=== PATIENT | female | born 1995 | race Caucasian/White ===

== ENCOUNTER 2024-07-15 07:54 | Inpatient (IN) | payer MEDICAID ==
[~2024-07-15] VITALS: Ht 154.9 cm; Wt 82.4 kg
[2024-07-15 10:43] VITALS: BP 124/81; PULSE 93; RESP 18; TEMP 97.7; O2SAT 100
[2024-07-15] MEDS ORDERED: magnesium hydroxide 30ml (MOM) UD suspension PO PRN (16:00)
[2024-07-15] MEDS ORDERED: mag hydrox/Alum hydrox/simeth 30ml oral suspension PO PRN (16:00)
[2024-07-15] MEDS ORDERED: acetaminophen 325mg tablet PO PRN ×2 (16:00)
[2024-07-15] MEDS ORDERED: loperamide 2mg capsule PO PRN (16:00)
[2024-07-15] MEDS ORDERED: diphenhydrAMINE 25mg capsule PO PRN (16:00)
[2024-07-15] MEDS ORDERED: NO HOME MEDS (17:44)
[2024-07-15 17:47] VITALS: RESP 18; O2SAT 100
[2024-07-15 19:00] VITALS: RESP 16; O2SAT 98
[2024-07-15 20:00] VITALS: BP 97/63; PULSE 72; RESP 16; TEMP 97; O2SAT 98
[2024-07-16 07:00] VITALS: BP 113/52; PULSE 71; RESP 16; TEMP 97.6; O2SAT 100
--- NOTE | 2024-07-16 15:19 | HISTORY AND PHYSICAL ---
MH History & Physical - Blank History and Physical CHIEF COMPLIANT GRAVELY DISABILITY HISTORY OF PRESENT ILLNESS Paz Núñez is a 29-year-old female with no clearly documented pertinent past medical history who presents to the ED via ambulance on a 5150 hold for gravely disability. Patient presents to [facility] today seeking admission for "brain fog" accompanied by a strange smell described as "sort of like soap". [facility] reports that patient was thought blocking in was unable to articulate a plan for care, so this staff member place the patient on a 5150 hold for gravely disability. In the ED patient states that she has been homeless for the past six years but goes on to state that she uses an EBT card to feed herself and has a plan to begin staying outside of a local [employer] to have easier access to food. He describes intermittently experiencing a change in the air that she can hear, C, and feel, and that causes her to become unsafe with a fear that is something we will try to attack her. Patient denies auditory or visual hallucinations, illicit drug use, suicidal ideation, homicidal ideation, or headache. She endorses using alcohol sometimes in expresses interest in speaking with pediatric social worker regarding housing options. Patient is prescribed no medications at baseline. CHART REVIEW 5150 states: "You reported something strange is happening, something is attacking me" Patient cannot say when she last ate or articulate a plan of self- care. Pt reports she will smell soap or something burning; then she reports she will sometimes hear the wind or an engine noise and then have the feeling that someone or something is going to either harm or attack her. Patient reports this feeling can present as a tactile hallucination ASSESSMENT The patient was interviewed in observation room. The patient was actively sitting edge of bed. The patient endorses "I feel fine." The patient endorses "I am in here because something sort of happening to me a few months ago. something thing happened were everything changes were I will start to smell a plastic soap a rubber smell." "Something happened to me I do not know why it happens; think it is like normal and then can happen were things changes like the air changes become still in different." "I have to leave the area and I smell like a soap plastic smell." "I started to get intimidated and then when I start to get intimidated its like a person is there not like one person there is a bunch of people there." "It seems like someone is trying to attack me like someone is trying to get beat me up like with a weapon." "They could have a knife or something "There is also something there that is like invisible something is trying to rip my body apart and then some growling there." Denies SI. Denies HI. The patient endorses she has been moving around for the past few years is back in [facility] right now. Then started happening to me in [place] so I had to come up here to [place]. Patient endorses she could not find a job and then COVID-19 happened and that is how she became homeless. The patient is stable no acute distress noted. The patient is delusional, paranoid, and engaged during session. The patient seems to be thought blocking and minimizing her symptoms. Will continue daily assessment and adjusting treatment as needed. Closely monitor behavior and response to medication during hospitalization. Discussed treatment plan with patient. ASE/risks and benefits of chosen treatment. She verbalized understanding and consented to treatment. REVIEW OF LABS URINE TOX SCREEN NEGATIVE URINALYSIS NEGATIVE SODIUM 139 POTASSIUM 4.0 CHLORIDE 107 ANION GAP 6 BUN 9 CREATININE 0.68 CALCIUM 10.0 ALBUMIN 3.8 AST 15 ALT 17 WBC 6.16 RBC 4.38 HEMOGLOBIN 13.7 HEMATOCRIT 39.2 PLATELET 274 MENTAL STATUS EXAM APPEARANCE: UNKEMPT.AVERGAE HEIGHT AND WEIGHT FEMALE. WEARING GREEN SCRUBS.REDDISH BROWN SHOULDER LENGTH HAIR. SPEECH: CIRCUMSTANTIAL, TANGENTIAL EYE CONTACT: AVOIDANT ATTENTION: DISTRACTED AFFECT: CONSTRICTED MOOD: "I FEEL FINE" ORIENTATION IMPAIRMENT: NONE MEMORY IMPAIRMENT: NONE HALLUCINATIONS: NONE SUICIDALITY: NONE DELUSIONS: PARANOID BEHAVIOR: WITHDRAWN JUDGMENT: POOR INSIGHT: POOR TREATMENT The patient endorses "I feel like it is better not to take medications; that is just my preference." The patient was educated on medication compliance. We will give the patient a day or two to see if she agrees to taking medication. ABILIFY 5MG PO QHS Monitoring by Staff, Milieu, Group, and Individual counseling as needed -- According to the [place] Suicide Assessment the above named patient is on Q15 MINUTE CHECKS. [id number]- Patient is unable to formulate a plan to safely meet their basic needs of food, clothing, and skilled nursing due to the severity of their mental illness. We are still titrating medications to an effective dose while maintaining a therapeutic environment to prevent decompensation and readmission. REVIEW OF Clinical notes [X ] RN notes [X] PCT documentation [X] SW notes Labs [ X] Medications [X] Care trends/care activity [X] Vitals [X] DISCUSSION WITH director of email marketing [X] Staff SW [X] Treatment Team [X] DISCHARGE UNSURE AT THIS TIME. DISCHARGE HOME ONCE STABLE. Past Psychiatric History Past Psychiatric History NO PRIOR PSYCHIATRIC MENTAL HEALTH HOSPITALIZATIONS Past Medical History Past Medical History SEE MEDICAL H AND P Past Surgical History Past Surgical History DENIES Substance Abuse History Substance Abuse History ALCOHOL-2-3 TIMES PER WEEK MARIJUANA-DAILY TOBACCO-DENIES ILLICIT DRUGS-DENIES Personal History Current Living Situation HOMELESS Marital & Relationship History NEVER . NO CHILDREN.SINGLE Sexual History DEFER Occupational History UNEMPLOYED EBT Social Activity BORN AND RAISED IN [employer] SOME COLLEGE NO SIBLINGS FOSTER CARE IN CONTACT WITH MOM [employer] NONE Legal History DENIES ANY LEGAL HISTORY History DENIES ANY HISTORY Developmental History Childhood DENIES ANY FORM OF ABUSE Assessment/Plan Problems/Diagnosis: (1) Unspecified psychosis (2) Grave disability (3) Tactile hallucination (4) Paranoid CODING VISIT-PSYCHIATRY Date of Service: July 16, 2024 Billing Provider: MARJORIE YODER APRN Psych Common Visit Codes: [id number] INP/OBS CARE (High) MARJORIE YODER APRN July 16, 2024 15:19
[2024-07-16 16:11] LABS: CHOL/HDL RATIO 2.4 (0.00-4.99); CHOLESTEROL 206 MG/DL (0-200); HDL CHOLESTEROL 85 MG/DL (35-60); LDL CHOLESTEROL 107 MG/DL (50-100); TRIGLYCERIDES 73 MG/DL (20-135)
--- NOTE | 2024-07-16 16:15 | HISTORY AND PHYSICAL ---
History & Physical Providers to CC ~ History of Present Illness Reason for Admit\Complaint: Gravely disabled on a 5150 History of Present Illness This is the hospitalist history and physical exam on patients hospitalized at [facility]. Patient is on a 5150 for being gravely disabled currently has no acute medical complaints or concerns and there were none voiced by nursing staff. Allergies: Coded Allergies: No Known Drug Allergies (Verified Allergy, Unknown, 07/15/24) Home Medications Home Medications Active Reported No Home Medications (Home Med List) Each PRN Past Medical History Past Medical History None Past Surgical History Surgical History Comment None Family History Family History: Patient reports no known family medical history. Past Social History Social History Comment Does not smoke cigarettes, occasionally drinks alcohol, smokes marijuana however denies any illicit drug use. ROS ROS Except for positives in the HPI the rest of the 14 point review systems is negative Exam Vitals: Vital Signs Date Time Temp Pulse Resp B/P (MAP) Pulse Ox O2 Delivery O2 Flow Rate FiO2 07/16/24 07:00 97.6 71 16 113/52 (72) 100 Room Air General: Gen. No acute distress alert Lungs clear to ascultation bilaterally, no wheezes rales or rhonchi appreciated Heart normal sinus rhythm no murmurs rubs or clicks noted Abdomen soft nontender bowel sounds are normoactive Lower extremities no clubbing cyanosis, nor edema appreciated bilaterally Problems: (1) Grave disability Additional Plan # gravely disabled on a 5150 hold followed by Psychiatry Acute medical complaints or concerns were voiced by the patient nor nursing s taff. The Hospitalist service will continue to follow the patient Date of Service: July 16, 2024 Billing Provider: NANETTE SERNA DO Common Visit Codes: [id number] INP/OBS CARE (LOW) NANETTE SERNA DO July 16, 2024 16:15
[2024-07-16 19:00] VITALS: RESP 18; O2SAT 100
[2024-07-16 20:00] VITALS: BP 111/55; PULSE 73; RESP 18; TEMP 97.6; O2SAT 100
[2024-07-17 07:00] VITALS: RESP 16; O2SAT 96
[2024-07-17] MEDS: aripiprazole 2MG tablet PO SCH (07:55)
[2024-07-17 08:00] VITALS: BP 102/60; PULSE 72; RESP 16; TEMP 97.9; O2SAT 96
--- NOTE | 2024-07-17 11:46 | PROGRESS NOTE ---
Progress Note Dictate Providers to CC ~ Central Line/PICC still needed: N\\A Antibiotic Ordered?: No MRSA Education MRSA Education Provided to pt: No Objective Vitals Vital Signs Date Time Temp Pulse Resp B/P (MAP) Pulse Ox O2 Delivery O2 Flow Rate FiO2 07/17/24 08:00 97.9 72 16 102/60 (74) 96 Room Air Counseling Services Smoking & Tobacco Cessation: > 10 Minutes Problem\\Assessment\\Plan Problems/Diagnosis: (1) Unspecified psychosis (2) Grave disability (3) Tactile hallucination (4) Paranoid Psychiatrist's Progress Note Date of Service: July 17, 2024 Notes CHART REVIEW 5150 states: "You reported something strange is happening, something is attacking me" Patient cannot say when she last ate or articulate a plan of self- care. Pt reports she will smell soap or something burning; then she reports she will sometimes hear the wind or an engine noise and then have the feeling that someone or something is going to either harm or attack her. Patient reports this feeling can present as a tactile hallucination ASSESSMENT The patient was interviewed in observation room. The patient was actively resting in with eyes open. The patient endorses "Good." The patient endorses "there is something there still." "I am not sure, um." The patient is giving a blank stare and looking all around exam." "Sort of like there is something there but I don't know how to explain it. like at this point whatever is there will not go away." "It is a little bit more presents i don't know it is more like invisible but not really invisible I just know that something is there." "Yes it is trying to hurt me." "I am not able to proceed normally like I normally would do I do not know why it is trying to hurt me." "It won't go away." Denies SI. Denies HI. "No they not really talking to me." The patient is stable no acute distress noted. The patient is a bit delusional, a bit paranoid, and disengaged during session. The patient seems to be thought blocking. Will continue daily assessment and adjusting treatment as needed. Closely monitor behavior and response to medication during hospitalization. Results Of any Diagn. Testing REVIEW OF LABS URINE TOX SCREEN NEGATIVE URINALYSIS NEGATIVE SODIUM 139 POTASSIUM 4.0 CHLORIDE 107 ANION GAP 6 BUN 9 CREATININE 0.68 CALCIUM 10.0 ALBUMIN 3.8 AST 15 ALT 17 WBC 6.16 RBC 4.38 HEMOGLOBIN 13.7 HEMATOCRIT 39.2 PLATELET 274 Appearnace: Other (UNKEMPT.AVERGAE HEIGHT AND WEIGHT FEMALE. WEARING GREEN SCRUBS.REDDISH BROWN SHOULDER LENGTH HAIR) Speech: Other (CIRCUMSTANTIAL) Eye Contact: Avoidant Motor Activity: Normal Affect: Constricted Orientation Impairment: None Memory Impairment: None Attention: Distracted Hallucinations: None Other: None Suicidality: None Homicidality: None Delusions: Paraniod Behavior: Guarded Insight: Poor Judgment: Poor Treatment Increase ABILIFY 7.5MG PO QHS Monitoring by Staff, Milieu, Group, and Individual counseling as needed -- According to the [place] Suicide Assessment the above named patient is on Q15 MINUTE CHECKS. [id number]- Patient is unable to formulate a plan to safely meet their basic needs of food, clothing, and retirement due to the severity of their mental illness. We are still titrating medications to an effective dose while maintaining a therapeutic environment to prevent decompensation and readmission. REVIEW OF Clinical notes [X ] RN notes [X] PCT documentation [X] SW notes Labs [ X] Medications [X] Care trends/care activity [X] Vitals [X] DISCUSSION WITH production line technician [X] Staff SW [X] Treatment Team [X] Discharge UNSURE AT THIS TIME. DISCHARGE HOMELESS ONCE STABLE. CODING VISIT-PSYCHIATRY Date of Service: July 17, 2024 Billing Provider: MARJORIE YODER APRN Psych Common Visit Codes: [id number] INP/OBS CARE(Mod) MARJORIE YODER APRN July 17, 2024 11:46
[2024-07-17] MEDS: aripiprazole 2MG tablet PO ONE (12:10)
[2024-07-17 20:00] VITALS: RESP 18; O2SAT 97
[2024-07-17 20:30] VITALS: BP 112/58; PULSE 71; RESP 18; TEMP 97.7; O2SAT 97
[2024-07-18 07:59] VITALS: BP 113/70; PULSE 62; RESP 16; TEMP 97.9; O2SAT 100
[2024-07-18] MEDS: aripiprazole 15 MG tablet PO SCH ×2 (09:01→22:02)
--- NOTE | 2024-07-18 13:29 | PROGRESS NOTE ---
Progress Note Dictate Providers to CC ~ Central Line/PICC still needed: N\\A Antibiotic Ordered?: No Objective Vitals Vital Signs Date Time Temp Pulse Resp B/P (MAP) Pulse Ox O2 Delivery O2 Flow Rate FiO2 07/18/24 07:59 97.9 62 16 113/70 (84) 100 Room Air Problem\\Assessment\\Plan Problems/Diagnosis: (1) Paranoid (2) Unspecified psychosis (3) Grave disability Psychiatrist's Progress Note Date of Service: July 18, 2024 Notes Patient is a short overweight female. She has long dark hair. Green Scrubs. She says 'there is something there that is invisible that keeps bothering me.' 'one let me proceed and do what I normally do.' 'Like invisible. Everything normal and then everything starts to change. This thing will and things happen starts to smell soap or plastic rubber. Forced by the invisible thing to go somewhere.' Get intimidated through this thing that happens. soap plastic rubber smell. Before a medical treatment. Then 'someone is going to knife me or cut me.' Started happening the past few months. Sometimes more than one person or think it's a person. Someone will try to attack me if I don't leave the area. Could have a weapon or knife. If walking down road they will just stop car where ever and get out and attack me and I don't know why. Started back in March. Never happened before. No depression. Life going completely normal then something strange started to happen to me. Will hear started to hear growling noise or possibly a human noise. Like person could be standing behind me but no one there. Doesn't think it's paranoia. 'There's something there trying to attack me.' No SI or plans. Not a lot of anxiety. Sits up straight rigid. arms to the side. 'I don't really know what it is that is going on... I don't know why it wants to attack me.' Sleeping okay. Normal BMs. Today. Eating good. and drinking. From [place] and 'I'm homeless at the moment.' Been homeless for the past 6 years. 'I can't find a job right now at the moment.' Sort of used to it by now. Not worried about being homeless. 'Sort of worried about what is going on with me' Should be able to take care of herself, but can't proceed with what she is doing and has to leave the area, 'it's strange.' Never been on meds before. Grew up on her own. Hasn't talked to any of her family. Been in foster care. Can't sleep where she would normally sleep because it won't let me sleep there. It's attacking me here in the mental hosptial. It's intimidating me. Simple tasks strange might want her to put on my socks rather than wear my shoes. 'I find that strange. I don't know what it is that would want me to do that.' 'Strange stuff...intimidation into doing it.' 'Forcing me to, and I don't really know why.' Still doing it today. Hasn't got any better since been here. Sometimes not be there then all of a sudden feel everything change around me and smell the soap plastic rubber smell and now it's just there.' REVIEW OF LABS URINE TOX SCREEN NEGATIVE URINALYSIS NEGATIVE SODIUM 139 POTASSIUM 4.0 CHLORIDE 107 ANION GAP 6 BUN 9 CREATININE 0.68 CALCIUM 10.0 ALBUMIN 3.8 AST 15 ALT 17 WBC 6.16 RBC 4.38 HEMOGLOBIN 13.7 HEMATOCRIT 39.2 PLATELET 274 MENTAL STATUS EXAM APPEARANCE: UNKEMPT.AVERGAE HEIGHT AND WEIGHT FEMALE. WEARING GREEN SCRUBS.REDDISH BROWN SHOULDER LENGTH HAIR. SPEECH: CIRCUMSTANTIAL, TANGENTIAL EYE CONTACT: AVOIDANT ATTENTION: DISTRACTED AFFECT: CONSTRICTED MOOD: "I FEEL FINE" ORIENTATION IMPAIRMENT: NONE MEMORY IMPAIRMENT: NONE HALLUCINATIONS: NONE SUICIDALITY: NONE DELUSIONS: PARANOID BEHAVIOR: WITHDRAWN JUDGMENT: POOR INSIGHT: POOR TREATMENT The patient endorses "I feel like it is better not to take medications; that is just my preference." The patient was educated on medication compliance. We will give the patient a day or two to see if she agrees to taking medication. ABILIFY 5MG PO QHS Monitoring by Staff, Milieu, Group, and Individual counseling as needed -- According to the [place] Suicide Assessment the above named patient is on Q15 MINUTE CHECKS. [id number]- Patient is unable to formulate a plan to safely meet their basic needs of food, clothing, and long term due to the severity of their mental illness. We are still titrating medications to an effective dose while maintaini ng a therapeutic environment to prevent decompensation and readmission. REVIEW OF Clinical notes [X ] RN notes [X] PCT documentation [X] SW notes Labs [ X] Medications [X] Care trends/care activity [X] Vitals [X] DISCUSSION WITH chute feeder [X] Staff SW [X] Treatment Team [X] DISCHARGE UNSURE AT THIS TIME. DISCHARGE HOME ONCE STABLE. Past Psychiatric History Past Psychiatric History NO PRIOR PSYCHIATRIC MENTAL HEALTH HOSPITALIZATIONS Past Medical History Past Medical History SEE MEDICAL H AND P Past Surgical History Past Surgical History DENIES Substance Abuse History Substance Abuse History ALCOHOL-2-3 TIMES PER WEEK MARIJUANA-DAILY TOBACCO-DENIES ILLICIT DRUGS-DENIES Personal History Current Living Situation HOMELESS Marital & Relationship History NEVER . NO CHILDREN.SINGLE Sexual History DEFER Occupational History UNEMPLOYED EBT Social Activity BORN AND RAISED IN [place] [employer] SOME COLLEGE NO SIBLINGS FOSTER CARE IN CONTACT WITH MOM Restorationist NONE Legal History DENIES ANY LEGAL HISTORY History DENIES ANY HISTORY Developmental History Childhood DENIES ANY FORM OF ABUSE VALERI RICH July 18, 2024 13:29
--- NOTE | 2024-07-18 18:10 | PROGRESS NOTE- Residence ---
Progress Note - Resident Providers to CC Resident Creating Document: MICHELA FU RES ~ Central Line/PICC still needed: No Pompa-Non Protocol Pompa Indications Met/Not Met: F/C Indications Not Met Antibiotic Timeout Antibiotic Ordered?: No Subjective Patient states that she has high-arched foot and uses boots. Denies any falls or trouble walking. Denies any other medical complaints Objective Vital Signs Date Time Temp Pulse Resp B/P (MAP) Pulse Ox O2 Delivery O2 Flow Rate FiO2 07/18/24 07:59 97.9 62 16 113/70 (84) 100 Room Air General: Awake and Alert, no acute distress. Resp: Unlabored. Lungs clear to auscultation bilaterally. Heart: Regular Rate and rhythm, normal S1 and S2 without murmur, rub or gallop. Abdomen: Soft and non tender no organomegaly Extremities: No cyanosis,clubbing or edema. Skin: Warm and Dry. Assessment Assessment 29-year-old female patient on a 5150 hold is currently being managed in the mental health unit for psychosis, paranoia and grave disability. Plan Plan Grave disability Paranoia Acute psychosis Continue monitoring in mental health unit Disposition: Hospitalist team will continue to follow Michela Fu PGY2, Internal medicine resident Date of Service: July 18, 2024 Billing Provider: DALI HOLDER MD Common Visit Codes: [id number] INP/OBS CARE(MOD) MICHELA FU RES July 18, 2024 18:10 DALI HOLDER MD July 18, 2024 21:14
[2024-07-18 19:00] VITALS: RESP 18; O2SAT 98
[2024-07-18 20:00] VITALS: BP 114/48; PULSE 73; RESP 18; TEMP 98; O2SAT 98
[2024-07-19 07:25] VITALS: BP 118/54; PULSE 64; RESP 18; TEMP 97.7; O2SAT 100
--- NOTE | 2024-07-19 16:28 | PROGRESS NOTE ---
Progress Note Dictate Providers to CC ~ Central Line/PICC still needed: N\\A Antibiotic Ordered?: No Objective Vitals Vital Signs Date Time Temp Pulse Resp B/P (MAP) Pulse Ox O2 Delivery O2 Flow Rate FiO2 07/19/24 09:30 Room Air 07/19/24 07:25 97.7 64 18 118/54 (75) 100 Problem\\Assessment\\Plan Problems/Diagnosis: (1) Paranoid (2) Unspecified psychosis (3) Grave disability Psychiatrist's Progress Note Date of Service: July 19, 2024 Notes Patient is a short overweight female. She has long dark hair. Green Scrubs. Feeling okay with the Abilify. Still feeling like there is an invisible force bothering her. She is just making sure she is stepping 'straight I guess.' Stepping only on specific tiles and in a systematic way. When outside nothing happening then randomly the invisible thing that's like attacking me would... everything randomly the invisible thing would start to attack me and smell soap plastic rubber smell.' Circumstantial. The smell goes with medical treatment and it wants to clean you. The invisible thing hasn't really left. It doesn't really talk to her. 'It has a way of communicating somehow,' Threatening her to not pursue her everyday activities. Won't be able to continue doing anything if I leave the [facility] at this point. Before could do what she would normally do. 'It's saying I won't be allowed to do anything and function.' Been sleeping. They haven't really been giving me medications except last night. She seems like she is ritualizing her hand washing and the amount of steps she is taking and how. Mental Status MENTAL STATUS EXAM APPEARANCE: UNKEMPT.AVERGAE HEIGHT AND WEIGHT FEMALE. WEARING GREEN SCRUBS.REDDISH BROWN SHOULDER LENGTH HAIR. SPEECH: CIRCUMSTANTIAL, TANGENTIAL EYE CONTACT: AVOIDANT ATTENTION: DISTRACTED AFFECT: CONSTRICTED MOOD: "I FEEL FINE" ORIENTATION IMPAIRMENT: NONE MEMORY IMPAIRMENT: NONE HALLUCINATIONS: NONE SUICIDALITY: NONE DELUSIONS: PARANOID BEHAVIOR: WITHDRAWN JUDGMENT: POOR INSIGHT: POOR Results Of any Diagn. Testing REVIEW OF LABS URINE TOX SCREEN NEGATIVE URINALYSIS NEGATIVE SODIUM 139 POTASSIUM 4.0 CHLORIDE 107 ANION GAP 6 BUN 9 CREATININE 0.68 CALCIUM 10.0 ALBUMIN 3.8 AST 15 ALT 17 WBC 6.16 RBC 4.38 HEMOGLOBIN 13.7 HEMATOCRIT 39.2 PLATELET 274 Treatment We just increased the Abilify. Let's see how she does. May think of increasing again... ABILIFY 15MG PO QHS Monitoring by Staff, Milieu, Group, and Individual counseling as needed -- According to the [place] Suicide Assessment the above named patient is on Q15 MINUTE CHECKS. [id number] Patient is unable to formulate a plan to safely meet their basic needs of food, clothing, and skilled nursing due to the severity of their mental illness. We are still titrating medications to an effective dose while maintaining a therapeutic environment to prevent decompensation and readmission. REVIEW OF Clinical notes [X ] RN notes [X] PCT documentation [X] SW notes Labs [ X] Medications [X] Care trends/care activity [X] Vitals [X] DISCUSSION WITH technology solutions architect [X] DISCHARGE UNSURE AT THIS TIME. DISCHARGE HOME ONCE STABLE. VALERI RICH July 19, 2024 16:28
[2024-07-19 19:00] VITALS: RESP 16; O2SAT 95
[2024-07-19 20:00] VITALS: BP 126/70; PULSE 85; RESP 16; TEMP 97.6; O2SAT 95
[2024-07-20 07:00] VITALS: RESP 17; O2SAT 98
[2024-07-20 08:00] VITALS: BP 104/59; PULSE 68; RESP 17; TEMP 97.8; O2SAT 99
--- NOTE | 2024-07-20 12:26 | PROGRESS NOTE ---
Progress Note Dictate Providers to CC ~ Central Line/PICC still needed: N\\A Antibiotic Ordered?: No MRSA Education MRSA Education Provided to pt: No Objective Vitals Vital Signs Date Time Temp Pulse Resp B/P (MAP) Pulse Ox O2 Delivery O2 Flow Rate FiO2 07/20/24 08:00 97.8 68 17 104/59 (74) 99 Room Air Counseling Services Smoking & Tobacco Cessation: > 10 Minutes Problem\\Assessment\\Plan Problems/Diagnosis: (1) Unspecified psychosis (2) Grave disability (3) Tactile hallucination (4) Paranoid Psychiatrist's Progress Note Date of Service: July 20, 2024 Notes CHART REVIEW [id number] states: "You reported something strange is happening, something is attacking me" Patient cannot say when she last ate or articulate a plan of self- care. Pt reports she will smell soap or something burning; then she reports she will sometimes hear the wind or an engine noise and then have the feeling that someone or something is going to either harm or attack her. Patient reports this feeling can present as a tactile hallucination ASSESSMENT The patient was interviewed in observation room. The patient was actively walking in hallway. The patient endorses "good." The patient endorses "It is worrisome like it happens at any moment and I feel kind of unsafe,. something happens to me like where I get some type of reaction where I get annoyed and angry and possibly get in a fight." "It happens with anything and anyone. I don't really know why it s just a random thing that happens." "I would go from being normal into a angry mood and it makes me might to want to fight someone." "I just want to out it out there it is not me that is getting angry." "It is just happening."I might be seeing people." Denies SI. Denies HI. The patient endorses adequate sleep and food intake. The patient is stable no acute distress noted. The patient is guarded, a bit delusional, auditory and visual hallucinations, and engaged during session. Per staff report the patient is medication compliant. Will continue daily assessment and adjusting treatment as needed. Closely monitor behavior and response to medication during hospitalization. Results Of any Diagn. Testing REVIEW OF LABS URINE TOX SCREEN NEGATIVE URINALYSIS NEGATIVE SODIUM 139 POTASSIUM 4.0 CHLORIDE 107 ANION GAP 6 BUN 9 CREATININE 0.68 CALCIUM 10.0 ALBUMIN 3.8 AST 15 ALT 17 WBC 6.16 RBC 4.38 HEMOGLOBIN 13.7 HEMATOCRIT 39.2 PLATELET 274 Appearnace: Other (APPROPRIATE. AVERGAE HEIGHT AND WEIGHT FEMALE. WEARING GREEN SCRUBS.REDDISH BROWN SHOULDER LENGTH HAIR.) Speech: Other (CIRCUMSTANTIAL) Eye Contact: Avoidant Motor Activity: Normal Affect: Constricted Mood: Anxious Orientation Impairment: None Memory Impairment: None Attention: Distracted Hallucinations: Auditory, Visual Other: None Suicidality: None Homicidality: None Delusions: None Behavior: Guarded Insight: Poor Judgment: Poor Treatment ABILIFY 15MG PO QHS DEPAKOTE ER 250 MG P.O. Q.H.S. HYDROXYZINE 50 MG P.O. B.I.D. Monitoring by Staff, Milieu, Group, and Individual counseling as needed -- According to the [place] Suicide Assessment the above named patient is on Q15 MINUTE CHECKS. [id number]- Patient is unable to formulate a plan to safely meet their basic needs of food, clothing, and intermediate due to the severity of their mental illness. We are still titrating medications to an effective dose while maintaining a therapeutic environment to prevent decompensation and readmission. REVIEW OF Clinical notes [X ] RN notes [X] PCT documentation [X] SW notes Labs [ X] Medications [X] Care trends/care activity [X] Vitals [X] DISCUSSION WITH fish hatchery man [X] Staff SW [X] Treatment Team [X] Discharge UNSURE AT THIS TIME. DISCHARGE HOMELESS ONCE STABLE. CODING VISIT-PSYCHIATRY Date of Service: July 20, 2024 Billing Provider: MARJORIE YODER APRN Psych Common Visit Codes: [id number] INP/OBS CARE(Mod) MARJORIE YODER APRN July 20, 2024 12:26
--- NOTE | 2024-07-20 16:02 | PROGRESS NOTE ---
Daily Progress Note Providers to CC ~ Antibiotic Timeout Antibiotic Ordered?: No Subjective This is the hospitalist progress note on patients hospitalized at [facility] [place]. The patient's RN informs me that the patient is actively psychotic and feels presents around her and sees people that are around her trying to beat her up. 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 Objective Vital Signs Date Time Temp Pulse Resp B/P (MAP) Pulse Ox O2 Delivery O2 Flow Rate FiO2 07/20/24 08:00 97.8 68 17 104/59 (74) 99 Room Air Gen. No acute distress alert Lungs clear to ascultation bilaterally, no wheezes rales or rhonchi appreciated Heart normal sinus rhythm no murmurs rubs or clicks noted Abdomen soft nontender bowel sounds are normoactive Lower extremities no clubbing cyanosis, nor edema appreciated bilaterally Problem\Assessment\Plan Problems/Diagnosis: (1) Grave disability # gravely disabled # psychoses Continue management by psychiatric team No acute medical complaints or concerns at this time The Hospitalist team will continue to follow the patient Date of Service: July 20, 2024 Billing Provider: NANETTE SERNA DO Common Visit Codes: [id number] INP/OBS CARE(LOW) NANETTE SERNA DO July 20, 2024 16:02
[2024-07-20 19:00] VITALS: RESP 18; O2SAT 97
[2024-07-20 20:00] VITALS: BP 134/60; PULSE 95; RESP 18; TEMP 97.3; O2SAT 97
[2024-07-20] MEDS: hydrOXYzine 25 MG tablet PO ONE (20:56)
[2024-07-20] MEDS: divalproex sod 250mg ER (24-hour) tablet PO SCH (20:56)
[2024-07-21 07:00] VITALS: BP 139/72; PULSE 75; RESP 75; TEMP 97.9; O2SAT 75
[2024-07-21 07:45] VITALS: RESP 18; O2SAT 99
[2024-07-21] MEDS: hydrOXYzine 25 MG tablet PO PRN (09:08)
--- NOTE | 2024-07-21 15:55 | PROGRESS NOTE ---
Progress Note Dictate Providers to CC ~ Central Line/PICC still needed: N\\A Antibiotic Ordered?: No MRSA Education MRSA Education Provided to pt: No Objective Vitals Vital Signs Date Time Temp Pulse Resp B/P (MAP) Pulse Ox O2 Delivery O2 Flow Rate FiO2 07/21/24 07:45 18 99 Room Air 07/21/24 07:00 97.9 75 139/72 (94) Problem\\Assessment\\Plan Problems/Diagnosis: (1) Unspecified psychosis (2) Grave disability (3) Tactile hallucination (4) Paranoid Psychiatrist's Progress Note Date of Service: July 21, 2024 Notes CHART REVIEW [id number] states: "You reported something strange is happening, something is attacking me" Patient cannot say when she last ate or articulate a plan of self- care. Pt reports she will smell soap or something burning; then she reports she will sometimes hear the wind or an engine noise and then have the feeling that someone or something is going to either harm or attack her. Patient reports this feeling can present as a tactile hallucination ASSESSMENT The patient was interviewed in observation room. The patient was actively walking in room. The patient endorses "I am feeling alright." "I feel like my hallucinations are fine today." The thing that was there is still there, the visible thing is still trying to decide on what I am doing." "Something weird is happening like It is asking me to take my medications." I could be possibly seeing things in the doorway, I know that the nurses check but there is some strange shaped monster thing there." I haven't really haven't had any anger mood changes." Denies SI. Denies HI. The patient endorses adequate sleep and food intake. The patient is stable no acute distress noted. The patient is guarded, auditory and visual hallucinations, and engaged during session. Per staff report the patient is medication compliant. Will continue daily assessment and adjusting treatment as needed. Closely monitor behavior and response to medication during hospitalization. Results Of any Diagn. Testing REVIEW OF LABS URINE TOX SCREEN NEGATIVE URINALYSIS NEGATIVE SODIUM 139 POTASSIUM 4.0 CHLORIDE 107 ANION GAP 6 BUN 9 CREATININE 0.68 CALCIUM 10.0 ALBUMIN 3.8 AST 15 ALT 17 WBC 6.16 RBC 4.38 HEMOGLOBIN 13.7 HEMATOCRIT 39.2 PLATELET 274 Appearnace: Other (APPROPRIATE. AVERAGE HEIGHT AND WEIGHT FEMALE. WEARING GREEN SCRUBS.REDDISH BROWN SHOULDER LENGTH HAIR.) Speech: Other Eye Contact: Avoidant Motor Activity: Normal Affect: Constricted Mood: Anxious Orientation Impairment: None Memory Impairment: None Attention: Distracted Hallucinations: Auditory, Visual Other: None Suicidality: None Homicidality: None Delusions: None Behavior: Guarded Insight: Poor Judgment: Poor Treatment Increase ABILIFY 20MG PO QHS DEPAKOTE ER 250 MG P.O. Q.H.S. HYDROXYZINE 50 MG P.O. B.I.D. Monitoring by Staff, Milieu, Group, and Individual counseling as needed -- According to the [place] Suicide Assessment the above named patient is on Q15 MINUTE CHECKS. [id number]- Patient is unable to formulate a plan to safely meet their basic needs of food, clothing, and halfway due to the severity of their mental illness. We are still titrating medications to an effective dose while maintaining a therapeutic environment to prevent decompensation and readmission. REVIEW OF Clinical notes [X ] RN notes [X] PCT documentation [X] SW notes Labs [ X] Medications [X] Care trends/care activity [X] Vitals [X] DISCUSSION WITH taxi servicer [X] Staff SW [X] Treatment Team [X] Discharge UNSURE AT THIS TIME. DISCHARGE HOMELESS ONCE STABLE. CODING VISIT-PSYCHIATRY Date of Service: July 21, 2024 Billing Provider: MARJORIE YODER APRN Psych Common Visit Codes: [id number] INP/OBS CARE(Mod) MARJORIE YODER APRN July 21, 2024 15:55
[2024-07-21] MEDS: LORazepam 1 MG tablet PO ONE (16:09)
[2024-07-21 19:00] VITALS: RESP 16; O2SAT 100
[2024-07-21 20:00] VITALS: BP 122/68; PULSE 84; RESP 16; TEMP 97.2; O2SAT 100
[2024-07-21] MEDS: aripiprazole 10MG tablet PO SCH (20:34)
[2024-07-21] MEDS: hydrOXYzine 25 MG tablet PO SCH (20:34)
[2024-07-22 07:00] VITALS: RESP 18; O2SAT 97
[2024-07-22 07:30] VITALS: BP 106/64; PULSE 68; RESP 18; TEMP 97.8; O2SAT 68
--- NOTE | 2024-07-22 11:52 | PROGRESS NOTE ---
Progress Note Dictate Providers to CC ~ Central Line/PICC still needed: N\\A Antibiotic Ordered?: No MRSA Education MRSA Education Provided to pt: No Objective Vitals Vital Signs Date Time Temp Pulse Resp B/P (MAP) Pulse Ox O2 Delivery O2 Flow Rate FiO2 07/22/24 07:30 97.8 68 18 106/64 (78) 68 Room Air Counseling Services Smoking & Tobacco Cessation: > 10 Minutes Problem\\Assessment\\Plan Problems/Diagnosis: (1) Unspecified psychosis (2) Grave disability (3) Tactile hallucination (4) Paranoid Psychiatrist's Progress Note Date of Service: July 22, 2024 Notes CHART REVIEW [id number] states: "You reported something strange is happening, something is attacking me" Patient cannot say when she last ate or articulate a plan of self- care. Pt reports she will smell soap or something burning; then she reports she will sometimes hear the wind or an engine noise and then have the feeling that someone or something is going to either harm or attack her. Patient reports this feeling can present as a tactile hallucination ASSESSMENT The patient was interviewed in observation room. The patient was actively walking in hallway. The patient endorses "I am feeling okay." "It is going okay it is really not a voice there right now but I don't want to say anything to make it angry or anything like that." I don't think I seen anything lately." "Sometimes I see something strange when I look at some of the employees." "I might see their eyes light up an change and that is when it makes the little thing that is with my angry and it wants to fight me or attack me." "I think it just want to; just hurt me." Denies SI. Denies HI. The patient endorses adequate sleep and food intake. The patient is stable no acute distress noted. The patient is cooperative, endorses auditory and visual hallucinations, and engaged during session. Per staff report the patient is medication compliant. Will continue daily assessment and adjusting treatment as needed. Closely monitor behavior and response to medication during hospitalization. Results Of any Diagn. Testing REVIEW OF LABS URINE TOX SCREEN NEGATIVE URINALYSIS NEGATIVE SODIUM 139 POTASSIUM 4.0 CHLORIDE 107 ANION GAP 6 BUN 9 CREATININE 0.68 CALCIUM 10.0 ALBUMIN 3.8 AST 15 ALT 17 WBC 6.16 RBC 4.38 HEMOGLOBIN 13.7 HEMATOCRIT 39.2 PLATELET 274 Appearnace: Other (APPROPRIATE. AVERAGE HEIGHT AND WEIGHT FEMALE. WEARING GREEN SCRUBS.REDDISH BROWN SHOULDER LENGTH HAIR) Speech: Other (CIRCUMSTANTIAL) Eye Contact: Avoidant Motor Activity: Normal Affect: Constricted Mood: Anxious Orientation Impairment: None Memory Impairment: None Attention: Distracted Hallucinations: Auditory, Visual Suicidality: None Homicidality: None Delusions: None Behavior: Agitated Insight: Poor Judgment: Poor Treatment ABILIFY 20MG PO QHS DEPAKOTE ER 250 MG P.O. Q.H.S. HYDROXYZINE 50 MG P.O. B.I.D. Monitoring by Staff, Milieu, Group, and Individual counseling as needed -- According to the [place] Suicide Assessment the above named patient is on Q15 MINUTE CHECKS. [id number]- Patient is unable to formulate a plan to safely meet their basic needs of food, clothing, and fpc due to the severity of their mental illness. We are still titrating medications to an effective dose while maintaining a therapeutic environment to prevent decompensation and readmission. REVIEW OF Clinical notes [X ] RN notes [X] PCT documentation [X] SW notes Labs [ X] Medications [X] Care trends/care activity [X] Vitals [X] DISCUSSION WITH assistant refinery operator [X] Staff SW [X] Treatment Team [X] Discharge UNSURE AT THIS TIME. DISCHARGE HOMELESS ONCE STABLE. CODING VISIT-PSYCHIATRY Date of Service: July 22, 2024 Billing Provider: MARJORIE YODER APRN Psych Common Visit Codes: [id number] INP/OBS CARE(Mod) MARJORIE YODER APRN July 22, 2024 11:52
[2024-07-22] MEDS: LORazepam 1 MG tablet PO ONE (11:55)
--- NOTE | 2024-07-22 14:31 | PROGRESS NOTE- Residence ---
Progress Note - Resident Providers to CC Resident Creating Document: HAM HAM, RES CC: MINE LIGHT MD ~ Antibiotic Timeout Antibiotic Ordered?: No Subjective Patient examined in H unit. Patient does not have any complaints or acute overnight events. Objective Vital Signs Date Time Temp Pulse Resp B/P (MAP) Pulse Ox O2 Delivery O2 Flow Rate FiO2 07/22/24 07:30 97.8 68 18 106/64 (78) 68 Room Air General: Alert, awake, oriented, not in acute distress HEENT: PERRLA, no icterus, pallor, lymphadenopathy, carotid bruit Respiratory system: Bilateral vesicular breath sounds heard, no adventitious breath sounds CVS: S1-S2 heard, no murmurs/rubs/gallop GI: Soft, nontender, no organomegaly, no guarding/rigidity, bowel sounds present Neuro: No focal neurological deficits present Extremities: No edema cyanosis clubbing/deformities Skin: Warm and dry Assessment Assessment 29-year-old female patient on a 5150 hold is currently being managed in the mental health unit for psychosis, paranoia and grave disability. Plan Plan Grave disability Paranoia Acute psychosis Management as per hospitalist team Disposition: Hospitalist team will continue to follow Ham Ham MD Internal Medicine, PGY 1 Date of Service: July 22, 2024 Billing Provider: MINE LIGHT MD, SIVA, AKBAR July 22, 2024 14:31
[2024-07-22 19:00] VITALS: RESP 16; O2SAT 94
[2024-07-22 20:00] VITALS: BP 139/90; PULSE 107; RESP 16; TEMP 97.7; O2SAT 94
[2024-07-23] MEDS: chlorproMAZINE 25mg tablet PO PRN (03:54)
[2024-07-23 07:30] VITALS: BP 129/61; PULSE 74; RESP 16; TEMP 97.3; O2SAT 96
[2024-07-23 08:00] VITALS: RESP 16; O2SAT 96
[2024-07-23] MEDS: hydrOXYzine 25 MG tablet PO SCH (15:44)
--- NOTE | 2024-07-23 18:44 | PROGRESS NOTE ---
Progress Note Dictate Providers to CC ~ Central Line/PICC still needed: N\\A Antibiotic Ordered?: No MRSA Education MRSA Education Provided to pt: No Objective Vitals Vital Signs Date Time Temp Pulse Resp B/P (MAP) Pulse Ox O2 Delivery O2 Flow Rate FiO2 07/23/24 08:00 16 96 Room Air 07/23/24 07:30 97.3 74 129/61 (83) Counseling Services Smoking & Tobacco Cessation: > 10 Minutes Problem\\Assessment\\Plan Problems/Diagnosis: (1) Unspecified psychosis (2) Grave disability (3) Tactile hallucination (4) Paranoid Psychiatrist's Progress Note Date of Service: July 23, 2024 Notes CHART REVIEW [id number] states: "You reported something strange is happening, something is attacking me" Patient cannot say when she last ate or articulate a plan of self- care. Pt reports she will smell soap or something burning; then she reports she will sometimes hear the wind or an engine noise and then have the feeling that someone or something is going to either harm or attack her. Patient reports this feeling can present as a tactile hallucination ASSESSMENT The patient was interviewed in observation room. The patient was actively standing in hallway. The patient endorses "I am doing well." It is still, the thing is still there it seems to be there like I don't really know, the things is still there like it is here to stay like its not going to leave not sure if its there with me or it is just there." i am not really sure." The whole it is intimidating me like it wants to here me." "When I was outside it would randomly show up I am not sure if it will be in my day to day life when I leave." "It has gotten better and being here it has giving me a clear idea of how this thing is responding to me." "I still feel sort of scared of it." Denies SI. Denies HI. The patient endorses adequate sleep and food intake. The patient is stable no acute distress noted. The patient is cooperative, paranoid, endorses auditory and visual hallucinations, and engaged during session. Per staff report the patient is medication compliant. Will continue daily assessment and adjusting treatment as needed. Closely monitor behavior and response to medication during hospitalization. Results Of any Diagn. Testing REVIEW OF LABS URINE TOX SCREEN NEGATIVE URINALYSIS NEGATIVE SODIUM 139 POTASSIUM 4.0 CHLORIDE 107 ANION GAP 6 BUN 9 CREATININE 0.68 CALCIUM 10.0 ALBUMIN 3.8 AST 15 ALT 17 WBC 6.16 RBC 4.38 HEMOGLOBIN 13.7 HEMATOCRIT 39.2 PLATELET 274 Appearnace: Other (APPROPRIATE. AVERAGE HEIGHT AND WEIGHT FEMALE. WEARING GREEN SCRUBS.REDDISH BROWN SHOULDER LENGTH HAIR) Speech: Other (CIRCUMSTANTIAL) Eye Contact: Avoidant Motor Activity: Normal Affect: Constricted Orientation Impairment: Time Memory Impairment: None Attention: Distracted Hallucinations: Auditory, Visual Other: None Suicidality: None Homicidality: None Delusions: Paraniod Behavior: Cooperative Insight: Poor Judgment: Poor Treatment ABILIFY 20MG PO QHS DEPAKOTE ER 250 MG P.O. Q.H.S. HYDROXYZINE 50 MG P.O. T.I.D. Monitoring by Staff, Milieu, Group, and Individual counseling as needed -- According to the [place] Suicide Assessment the above named patient is on Q15 MINUTE CHECKS. [id number]- Patient is unable to formulate a plan to safely meet their basic needs of food, clothing, and penitentiary due to the severity of their mental illness. We are still titrating medications to an effective dose while ma intaining a therapeutic environment to prevent decompensation and readmission. REVIEW OF Clinical notes [X ] RN notes [X] PCT documentation [X] SW notes Labs [ X] Medications [X] Care trends/care activity [X] Vitals [X] DISCUSSION WITH wrapper cashier [X] Staff SW [X] Treatment Team [X] Discharge UNSURE AT THIS TIME. DISCHARGE HOMELESS ONCE STABLE. CODING VISIT-PSYCHIATRY Date of Service: July 23, 2024 Billing Provider: MARJORIE YODER APRN Psych Common Visit Codes: [id number] INP/OBS CARE(Mod) MARJORIE YODER APRN July 23, 2024 18:44
[2024-07-23 19:00] VITALS: RESP 18; O2SAT 96
[2024-07-23 20:00] VITALS: BP 128/72; PULSE 72; RESP 18; TEMP 97.5; O2SAT 96
[2024-07-23] MEDS: traZODone 50mg tablet PO PRN (22:39)
--- NOTE | 2024-07-24 07:30 | PROGRESS NOTE ---
Progress Note Dictate Providers to CC ~ Central Line/PICC still needed: N\\A Antibiotic Ordered?: No MRSA Education MRSA Education Provided to pt: No Objective Vitals Vital Signs Date Time Temp Pulse Resp B/P (MAP) Pulse Ox O2 Delivery O2 Flow Rate FiO2 07/23/24 20:00 97.5 72 18 128/72 (90) 96 Room Air Counseling Services Smoking & Tobacco Cessation: > 10 Minutes Problem\\Assessment\\Plan Problems/Diagnosis: (1) Unspecified psychosis (2) Grave disability (3) Tactile hallucination (4) Paranoid Psychiatrist's Progress Note Date of Service: July 24, 2024 Notes CHART REVIEW [id number] states: "You reported something strange is happening, something is attacking me" Patient cannot say when she last ate or articulate a plan of self- care. Pt reports she will smell soap or something burning; then she reports she will sometimes hear the wind or an engine noise and then have the feeling that someone or something is going to either harm or attack her. Patient reports this feeling can present as a tactile hallucination ASSESSMENT The patient was interviewed in observation room. The patient was actively standing in hallway. The patient endorses "Good." The voices are good, fine it just wants to hurt me I guess." It is just something there that really wants to hurt me." I am not sure if I could see it I think maybe there is something I see like a light or something but I can't be completely sure." "yes I realize that something maybe be wrong and I need to keep taking my medication." Denies SI. Denies HI. The patient endorses adequate sleep and food intake. The patient is stable no acute distress noted. The patient is cooperative, endorses auditory and visual hallucinations with improvement, and engaged during session. Extensive education on consuming marijuana while taking medication. Per staff report the patient is medication compliant. Will continue daily assessment and adjusting treatment as needed. Closely monitor behavior and response to medication during hospitalization. Results Of any Diagn. Testing REVIEW OF LABS URINE TOX SCREEN NEGATIVE URINALYSIS NEGATIVE SODIUM 139 POTASSIUM 4.0 CHLORIDE 107 ANION GAP 6 BUN 9 CREATININE 0.68 CALCIUM 10.0 ALBUMIN 3.8 AST 15 ALT 17 WBC 6.16 RBC 4.38 HEMOGLOBIN 13.7 HEMATOCRIT 39.2 PLATELET 274 Appearnace: Other (APPROPRIATE. AVERAGE HEIGHT AND WEIGHT FEMALE. WEARING G REEN SCRUBS.REDDISH BROWN SHOULDER LENGTH HAIR) Speech: Other (CIRCUMSTANTIAL) Eye Contact: Avoidant Motor Activity: Normal Affect: Constricted Orientation Impairment: None Memory Impairment: None Attention: Normal Hallucinations: Auditory, Visual Other: None Suicidality: None Homicidality: None Delusions: None Behavior: Cooperative Insight: Poor Judgment: Poor Treatment ABILIFY 20MG PO QHS DEPAKOTE ER 250 MG P.O. Q.H.S. HYDROXYZINE 50 MG P.O. T.I.D. Monitoring by Staff, Milieu, Group, and Individual counseling as needed -- According to the [place] Suicide Assessment the above named patient is on Q15 MINUTE CHECKS. [id number]- Patient is unable to formulate a plan to safely meet their basic needs of food, clothing, and longterm due to the severity of their mental illness. We are still titrating medications to an effective dose while maintaining a therapeutic environment to prevent decompensation and readmission. REVIEW OF Clinical notes [X ] RN notes [X] PCT documentation [X] SW notes Labs [ X] Medications [X] Care trends/care activity [X] Vitals [X] DISCUSSION WITH cmo & president [X] Staff SW [X] Treatment Team [X] Discharge UNSURE AT THIS TIME. DISCHARGE HOMELESS ONCE STABLE. CODING VISIT-PSYCHIATRY Date of Service: July 24, 2024 Billing Provider: MARJORIE YODER APRN Psych Common Visit Codes: [id number] INP/OBS CARE(Mod) MARJORIE YODER APRN July 24, 2024 07:30
[2024-07-24 07:41] VITALS: BP 107/58; PULSE 74; RESP 14; TEMP 97.8; O2SAT 97
--- NOTE | 2024-07-24 17:11 | PROGRESS NOTE- Residence ---
Progress Note - Resident Providers to CC Resident Creating Document: STEVE HIDALGO RES ~ Antibiotic Timeout Antibiotic Ordered?: No Subjective Patient examined in [facility] unit. Patient does not have any complaints or acute overnight events. Objective Vital Signs Date Time Temp Pulse Resp B/P (MAP) Pulse Ox O2 Delivery O2 Flow Rate FiO2 07/24/24 07:41 97.8 74 14 107/58 (74) 97 Room Air General: Awake and Alert, no acute distress. HEENT: Conjunctiva pink, Sclera clear, Mucus Membranes moist. Neck: Supple without masses and tenderness. Resp: Unlabored. Lungs clear to auscultation bilaterally. Heart: Regular Rate and rhythm, normal S1 and S2 without murmur, rub or gallop. Abdomen: Soft and non tender no organomegaly Extremities: No cyanosis,clubbing or edema. Skin: Warm and Dry. Advance Care Planning Advanced Care plannin - 30 Minutes Assessment Assessment 29-year-old female patient on a 5150 hold is currently being managed in the mental health unit for psychosis, paranoia and grave disability. Plan Plan Grave disability Paranoia Acute psychosis Management as per hospitalist team Disposition: Hospitalist team will continue to follow Steve Hidalgo Internal Medicine Resident Date of Service: July 24, 2024 Billing Provider: MINE LIGHT MD, SHAMS, RES July 24, 2024 17:11
[2024-07-24 19:00] VITALS: RESP 18; O2SAT 96
[2024-07-24 20:00] VITALS: BP 125/80; PULSE 72; RESP 17; TEMP 97.9; O2SAT 99
--- NOTE | 2024-07-25 06:57 | PROGRESS NOTE ---
Progress Note Dictate Providers to CC ~ Central Line/PICC still needed: N\\A Antibiotic Ordered?: No MRSA Education MRSA Education Provided to pt: No Objective Vitals Vital Signs Date Time Temp Pulse Resp B/P (MAP) Pulse Ox O2 Delivery O2 Flow Rate FiO2 07/24/24 20:00 97.9 72 17 125/80 (95) 99 Room Air Counseling Services Smoking & Tobacco Cessation: > 10 Minutes Problem\\Assessment\\Plan Problems/Diagnosis: (1) Unspecified psychosis (2) Grave disability (3) Tactile hallucination (4) Paranoid Psychiatrist's Progress Note Date of Service: July 25, 2024 Notes CHART REVIEW [id number] states: "You reported something strange is happening, something is attacking me" Patient cannot say when she last ate or articulate a plan of self- care. Pt reports she will smell soap or something burning; then she reports she will sometimes hear the wind or an engine noise and then have the feeling that someone or something is going to either harm or attack her. Patient reports this feeling can present as a tactile hallucination ASSESSMENT The patient was interviewed in observation room. The patient was actively walking in hallway. The patient endorses "I am doing well." I would say I am doing okay but the thing that is there still wants to hurt my really bad I think it possibly physically wants to wound.' It is very worrisome." "It has some strange moments where it doesn't want me to be asleep I am just going to have to live with that and figure it out." "It sometimes it gets really angry at me." It doesn't really say anything." It will director me more rather than talk to me." "No clear voice that I can hear." Denies SI. Denies HI. The patient endorses adequate food intake and poor sleep. The patient is stable no acute distress noted. The patient is cooperative, endorses visual hallucinations, and disengaged during session. Per staff report the patient is medication compliant. Will continue daily assessment and adjusting treatment as needed. Closely monitor behavior and response to medication during hospitalization. Results Of any Diagn. Testing REVIEW OF LABS URINE TOX SCREEN NEGATIVE URINALYSIS NEGATIVE SODIUM 139 POTASSIUM 4.0 CHLORIDE 107 ANION GAP 6 BUN 9 CREATININE 0.68 CALCIUM 10.0 ALBUMIN 3.8 AST 15 ALT 17 WBC 6.16 RBC 4.38 HEMOGLOBIN 13.7 HEMATOCRIT 39.2 PLATELET 274 Appearnace: Other (APPROPRIATE. AVERAGE HEIGHT AND WEIGHT FEMALE. WEARING STREET CLOTHING.REDDISH BROWN SHOULDER LENGTH HAIR) Speech: Other (CIRCUMSTANTIAL) Eye Contact: Other (INTERMITTENT) Motor Activity: Normal Affect: Constricted Orientation Impairment: None Memory Impairment: None Attention: Distracted Hallucinations: Visual Other: None Suicidality: None Homicidality: None Delusions: None Behavior: Cooperative Insight: Poor Judgment: Poor Treatment May ADD zyprexa and decrease Abilify while increasing zyprexa. ABILIFY 20MG PO QHS DEPAKOTE ER 250 MG P.O. Q.H.S. HYDROXYZINE 50 MG P.O. T.I.D. Monitoring by Staff, Milieu, Group, and Individual counseling as needed -- According to the [place] Suicide Assessment the above named patient is on Q15 MINUTE CHECKS. [id number]- Patient is unable to formulate a plan to safely meet their basic needs of food, clothing, and nursing home due to the severity of their mental illness. We are still titrating medications to an effective dose while maintaining a therapeutic environment to prevent decompensation and readmission. REVIEW OF Clinical notes [X ] RN notes [X] PCT documentation [X] SW notes Labs [ X] Medications [X] Care trends/care activity [X] Vitals [X] DISCUSSION WITH video production assistant [X] Staff SW [X] Treatment Team [X] Discharge UNSURE AT THIS TIME. DISCHARGE HOMELESS ONCE STABLE. CODING VISIT-PSYCHIATRY Date of Service: July 25, 2024 Billing Provider: MARJORIE YODER APRN Psych Common Visit Codes: [id number] INP/OBS CARE(Mod) MARJORIE YODER APRN July 25, 2024 06:57
[2024-07-25 07:30] VITALS: BP 124/64; PULSE 85; RESP 12; TEMP 97.7; O2SAT 100
[2024-07-25 19:00] VITALS: RESP 16; O2SAT 97
[2024-07-25 20:00] VITALS: BP 110/54; PULSE 79; RESP 15; TEMP 97.8; O2SAT 97
[2024-07-25] MEDS: QUETIAPINE 50 MG TAB.SR.24H PO SCH (21:52)
[2024-07-26 07:00] VITALS: RESP 16; O2SAT 97
[2024-07-26 08:00] VITALS: BP 129/54; PULSE 83; RESP 16; TEMP 98.1; O2SAT 97
--- NOTE | 2024-07-26 12:34 | PROGRESS NOTE ---
Progress Note Dictate Providers to CC ~ Central Line/PICC still needed: N\\A Antibiotic Ordered?: No MRSA Education MRSA Education Provided to pt: No Objective Vitals Vital Signs Date Time Temp Pulse Resp B/P (MAP) Pulse Ox O2 Delivery O2 Flow Rate FiO2 07/26/24 08:00 98.1 83 16 129/54 (79) 97 Room Air Counseling Services Smoking & Tobacco Cessation: > 10 Minutes Problem\\Assessment\\Plan Problems/Diagnosis: (1) Unspecified psychosis (2) Grave disability (3) Tactile hallucination (4) Paranoid Psychiatrist's Progress Note Date of Service: July 26, 2024 Notes CHART REVIEW [id number] states: "You reported something strange is happening, something is attacking me" Patient cannot say when she last ate or articulate a plan of self- care. Pt reports she will smell soap or something burning; then she reports she will sometimes hear the wind or an engine noise and then have the feeling that someone or something is going to either harm or attack her. Patient reports this feeling can present as a tactile hallucination ASSESSMENT The patient was interviewed in observation room. The patient was actively walking in hallway. The patient endorses "I am doing good." "I am just walking getting me some exercise." "Something strange is going on; the thing is asking me to ask you to discharge me right now." The thing is presents and trying to hurt me it fells like it is ripping my skin apart." "Like it is trying to attack me and beat me up." "I am trying to sleep right now but it wont let me." Denies SI. Denies HI. The patient endorses adequate food intake and sleep. The patient is stable no acute distress noted. The patient is cooperative, endorses visual and tactile hallucinations, and a bit disengaged during session. Per staff report the patient is medication compliant. Will continue daily assessment and adjusting treatment as needed. Closely monitor behavior and response to medication during hospitalization. Results Of any Diagn. Testing REVIEW OF LABS URINE TOX SCREEN NEGATIVE URINALYSIS NEGATIVE SODIUM 139 POTASSIUM 4.0 CHLORIDE 107 ANION GAP 6 BUN 9 CREATININE 0.68 CALCIUM 10.0 ALBUMIN 3.8 AST 15 ALT 17 WBC 6.16 RBC 4.38 HEMOGLOBIN 13.7 HEMATOCRIT 39.2 PLATELET 274 Appearnace: Other (APPROPRIATE. AVERAGE HEIGHT AND WEIGHT FEMALE. WEARING STREET CLOTHING.REDDISH BROWN SHOULDER LENGTH HAIR) Speech: Other (CIRCUMSTANTIAL) Eye Contact: Other (INTERMITTENT) Motor Activity: Normal Affect: Full Mood: Euthymic Orientation Impairment: None Memory Impairment: None Attention: Normal Hallucinations: Auditory, Visual Other: None Suicidality: None Homicidality: None Delusions: None Behavior: Cooperative Insight: Fair, Poor Judgment: Poor Treatment Abilify is not effective. We will initiate zyprexa while decreasing Abilify. ABILIFY 15MG PO QHS DEPAKOTE ER 250 MG P.O. Q.H.S. HYDROXYZINE 50 MG P.O. T.I.D. Initiate ZYPREXA 5MG PO QHS Monitoring by Staff, Milieu, Group, and Individual counseling as needed -- According to the [place] Suicide Assessment the above named patient is on Q15 MINUTE CHECKS. [id number]- Patient is unable to formulate a plan to safely meet their basic needs of food, clothing, and penitentiary due to the severity of their mental illness. We are still titrating medications to an effective dose while maintaining a therapeutic environment to prevent decompensation and readmission. REVIEW OF Clinical notes [X ] RN notes [X] PCT documentation [X] SW notes Labs [ X] Medications [X] Care trends/care activity [X] Vitals [X] DISCUSSION WITH sales merchandise associate [X] Staff SW [X] Treatment Team [X] Discharge UNSURE AT THIS TIME. DISCHARGE HOMELESS ONCE STABLE. CODING VISIT-PSYCHIATRY Date of Service: July 26, 2024 Billing Provider: MARJORIE YODER APRN Psych Common Visit Codes: [id number] INP/OBS CARE(Mod) MARJORIE YODER APRN July 26, 2024 12:34
--- NOTE | 2024-07-26 15:35 | PROGRESS NOTE- Residence ---
Progress Note - Resident Providers to CC Resident Creating Document: STEVE HIDALGO RES ~ Antibiotic Timeout Antibiotic Ordered?: No Subjective Patient examined in [facility] unit. Patient does not have any complaints or acute overnight events. Objective Vital Signs Date Time Temp Pulse Resp B/P (MAP) Pulse Ox O2 Delivery O2 Flow Rate FiO2 07/26/24 08:00 98.1 83 16 129/54 (79) 97 Room Air General: Awake and Alert, no acute distress. HEENT: Conjunctiva pink, Sclera clear, Mucus Membranes moist. Neck: Supple without masses and tenderness. Resp: Unlabored. Lungs clear to auscultation bilaterally. Heart: Regular Rate and rhythm, normal S1 and S2 without murmur, rub or gallop. Abdomen: Soft and non tender no organomegaly Extremities: No cyanosis,clubbing or edema. Skin: Warm and Dry. Advance Care Planning Advanced Care plannin - 30 Minutes Assessment Assessment 29-year-old female patient on a 5150 hold is currently being managed in the mental health unit for psychosis, paranoia and grave disability. Plan Plan Grave disability Paranoia Acute psychosis Management as per hospitalist team Disposition: Hospitalist team will continue to follow Steve Hidalgo Internal Medicine Resident Date of Service: July 26, 2024 Billing Provider: MINE LIGHT MD, SHAMS, RES July 26, 2024 15:35
[2024-07-26] MEDS: OLANZapine 5mg rapidly disint. tablet PO SCH (15:43)
[2024-07-26 19:00] VITALS: BP 116/60; PULSE 83; RESP 16; TEMP 97.7; O2SAT 98
[2024-07-26 20:00] VITALS: RESP 16; O2SAT 98
[2024-07-26] MEDS: aripiprazole 10MG tablet PO SCH (20:43)
[2024-07-26] MEDS: benztropine 1mg tablet PO SCH (20:44)
[2024-07-27 07:00] VITALS: RESP 16; O2SAT 98
[2024-07-27 08:00] VITALS: BP 109/60; PULSE 64; RESP 16; TEMP 98.1; O2SAT 98
--- NOTE | 2024-07-27 14:42 | PROGRESS NOTE ---
Progress Note Dictate Providers to CC ~ Central Line/PICC still needed: N\\A Antibiotic Ordered?: No MRSA Education MRSA Education Provided to pt: No Objective Vitals Vital Signs Date Time Temp Pulse Resp B/P (MAP) Pulse Ox O2 Delivery O2 Flow Rate FiO2 07/27/24 08:00 98.1 64 16 109/60 (76) 98 Room Air Problem\\Assessment\\Plan Problems/Diagnosis: (1) Unspecified psychosis (2) Grave disability (3) Tactile hallucination (4) Paranoid Psychiatrist's Progress Note Date of Service: July 27, 2024 Notes CHART REVIEW [id number] states: "You reported something strange is happening, something is attacking me" Patient cannot say when she last ate or articulate a plan of self- care. Pt reports she will smell soap or something burning; then she reports she will sometimes hear the wind or an engine noise and then have the feeling that someone or something is going to either harm or attack her. Patient reports this feeling can present as a tactile hallucination ASSESSMENT The patient was interviewed in observation room. The patient was actively walking in room. The patient endorses "I'm doing fine." "I don't know; I guess it is fine it is just going away." "I guess you can say it is getting better it is still dong the same things it was doing when I was out there and in the hospital." "I guess I am in a space where I can't get away from it." "It doesn't want to hurt me so much today it is just a form of intimidation." "It is being strange of me going to the restroom and I don't know why." "I can fall asleep but it is doing something because I am sleeping." "It is hard to say if I see things now; I have seen strange things that would appear." "I can tell something is there." Denies SI. Denies HI. The patient is stable no acute distress noted. The patient is cooperative, endorses visual and auditory hallucinations, and a bit disengaged during session.Per staff report the patient is medication compliant. Will continue daily assessment and adjusting treatment as needed. Closely monitor behavior and response to medication during hospitalization. Results Of any Diagn. Testing REVIEW OF LABS URINE TOX SCREEN NEGATIVE URINALYSIS NEGATIVE SODIUM 139 POTASSIUM 4.0 CHLORIDE 107 ANION GAP 6 BUN 9 CREATININE 0.68 CALCIUM 10.0 ALBUMIN 3.8 AST 15 ALT 17 WBC 6.16 RBC 4.38 HEMOGLOBIN 13.7 HEMATOCRIT 39.2 PLATELET 274 Appearnace: Other (APPROPRIATE. AVERAGE HEIGHT AND WEIGHT FEMALE. WEARING STREET CLOTHING.REDDISH BROWN SHOULDER LENGTH HAIR) Speech: Other (CIRCUMSTANTIAL, NON-SENSUAL) Eye Contact: Other (INTERMITTENT) Motor Activity: Normal Affect: Constricted Orientation Impairment: None Memory Impairment: None Attention: Normal Hallucinations: Auditory, Visual Suicidality: None Homicidality: None Delusions: None Behavior: Cooperative Insight: Fair, Poor Judgment: Poor Treatment Decrease ABILIFY 10MG PO QHS DEPAKOTE ER 250 MG P.O. Q.H.S. HYDROXYZINE 50 MG P.O. T.I.D. Increase ZYPREXA 10MG PO QHS Monitoring by Staff, Milieu, Group, and Individual counseling as needed -- According to the [place] Suicide Assessment the above named patient is on Q15 MINUTE CHECKS. [id number]- Patient is unable to formulate a plan to safely meet their basic needs of food, clothing, and [facility] due to the severity of their mental illness. We are still titrating medications to an effective dose while maintaining a therapeutic environment to prevent decompensation and readmission. REVIEW OF Clinical notes [X ] RN notes [X] PCT documentation [X] SW notes Labs [ X] Medications [X] Care trends/care activity [X] Vitals [X] DISCUSSION WITH clinical registered nurse [X] Staff SW [X] Treatment Team [X] Discharge UNSURE AT THIS TIME. DISCHARGE HOMELESS ONCE STABLE. CODING VISIT-PSYCHIATRY Date of Service: July 27, 2024 Billing Provider: MARJORIE YODER APRN Psych Common Visit Codes: [id number] INP/OBS CARE(Mod) MARJORIE YODER APRN July 27, 2024 14:42
[2024-07-27] MEDS ORDERED: OLANZapine 2.5MG tablet PO SCH (15:35)
[2024-07-27 20:00] VITALS: BP 164/72; PULSE 114; RESP 18; TEMP 98.1; O2SAT 99
[2024-07-27] MEDS: OLANZapine 5mg rapidly disint. tablet PO SCH (20:26)
[2024-07-27] MEDS: aripiprazole 10MG tablet PO SCH (20:26)
[2024-07-27 20:59] VITALS: RESP 18; O2SAT 99
[2024-07-28 07:00] VITALS: BP 105/60; PULSE 64; RESP 16; TEMP 98.2; O2SAT 99
--- NOTE | 2024-07-28 13:48 | PROGRESS NOTE ---
Progress Note Dictate Providers to CC ~ Central Line/PICC still needed: N\\A Antibiotic Ordered?: No MRSA Education MRSA Education Provided to pt: No Objective Vitals Vital Signs Date Time Temp Pulse Resp B/P (MAP) Pulse Ox O2 Delivery O2 Flow Rate FiO2 07/28/24 07:00 16 99 Room Air 07/28/24 07:00 98.2 64 105/60 (75) Counseling Services Smoking & Tobacco Cessation: > 10 Minutes Problem\\Assessment\\Plan Problems/Diagnosis: (1) Unspecified psychosis (2) Grave disability (3) Tactile hallucination (4) Paranoid Psychiatrist's Progress Note Date of Service: July 28, 2024 Notes CHART REVIEW [id number] states: "You reported something strange is happening, something is attacking me" Patient cannot say when she last ate or articulate a plan of self- care. Pt reports she will smell soap or something burning; then she reports she will sometimes hear the wind or an engine noise and then have the feeling that someone or something is going to either harm or attack her. Patient reports this feeling can present as a tactile hallucination ASSESSMENT The patient was interviewed in observation room. The patient was actively sitting in rec room. The patient endorses "I am feeling alright." "I guess you can say for the most it is still doing the same thing it has been doing but not as much." "It is still presents." "I can't be in my room when it is too dark because something strange happens; I have to have light to see." "It hasn't really said anything." "My mom is happening me a little bit with a living situation." "I am not sure my living situation will make the thing better." "I can't find I job really in [facility] but hopefully something comes open soon." "I have my EBT card and free dining facility; I'm nit sure I want to still eat there but its there." Denies SI. Denies HI. denies AH. The patient is stable no acute distress noted. The patient is cooperative, endorses visual hallucinations, and somewhat engaged during session.Per staff report the patient is medication compliant. Per staff report no abnormal behaviors. The patient has shown some improvement since admission. Will continue daily assessment and adjusting treatment as needed. Closely monitor behavior and response to medication during hospitalization. Results Of any Diagn. Testing REVIEW OF LABS URINE TOX SCREEN NEGATIVE URINALYSIS NEGATIVE SODIUM 139 POTASSIUM 4.0 CHLORIDE 107 ANION GAP 6 BUN 9 CREATININE 0.68 CALCIUM 10.0 ALBUMIN 3.8 AST 15 ALT 17 WBC 6.16 RBC 4.38 HEMOGLOBIN 13.7 HEMATOCRIT 39.2 PLATELET 274 Appearnace: Other (APPROPRIATE. AVERAGE HEIGHT AND WEIGHT FEMALE. WEARING STREET CLOTHING.REDDISH BROWN SHOULDER LENGTH HAIR) Speech: Other (CIRCUMSTANTIAL) Eye Contact: Normal Motor Activity: Normal Affect: Constricted Orientation Impairment: None Memory Impairment: None Attention: Normal Hallucinations: Visual Other: None Suicidality: None Homicidality: None Delusions: None Behavior: Cooperative Insight: Fair, Poor Judgment: Poor Treatment Decrease ABILIFY 5MG PO QHS Increase DEPAKOTE ER 500 MG P.O. Q.H.S. HYDROXYZINE 50 MG P.O. T.I.D. ZYPREXA 10MG PO QHS Initiate ZYPREXA 5 MG P.O. DAILY Monitoring by Staff, Milieu, Group, and Individual counseling as needed -- According to the [place] Suicide Assessment the above named patient is on Q15 MINUTE CHECKS. [id number]- Patient is unable to formulate a plan to safely meet their basic needs of food, clothing, and care home due to the severity of their mental illness. We are still titrating medications to an effective dose while maintaining a therapeutic environment to prevent decompensation and readmission. REVIEW OF Clinical notes [X ] RN notes [X] PCT documentation [X] SW notes Labs [ X] Medications [X] Care trends/care activity [X] Vitals [X] DISCUSSION WITH antenna rigger [X] Staff SW [X] Treatment Team [X] Discharge UNSURE AT THIS TIME. DISCHARGE HOMELESS ONCE STABLE. CODING VISIT-PSYCHIATRY Date of Service: July 28, 2024 Billing Provider: MARJORIE YODER APRN Psych Common Visit Codes: [id number] INP/OBS CARE(Mod) MARJORIE YODER APRN July 28, 2024 13:48
--- NOTE | 2024-07-28 15:54 | PROGRESS NOTE ---
Daily Progress Note Providers to CC ~ Antibiotic Timeout Antibiotic Ordered?: No Subjective No complaints Objective Vital Signs Date Time Temp Pulse Resp B/P (MAP) Pulse Ox O2 Delivery O2 Flow Rate FiO2 07/28/24 07:00 16 99 Room Air 07/28/24 07:00 98.2 64 105/60 (75) HEENT normal oral mucosa no JVD Lungs with normal bilateral entry Heart normal rate and rhythm S1-S2 Abdomen soft nontender bowel sounds present Extremities no edema Awake alert Problem\Assessment\Plan Problems/Diagnosis: (1) Grave disability # gravely disabled # psychoses Continue management by psychiatric team No acute medical issues Date of Service: July 28, 2024 Billing Provider: DALI HOLDER MD Common Visit Codes: [id number] INP/OBS CARE(MOD) DALI HOLDER MD July 28, 2024 15:54
[2024-07-28 19:35] VITALS: RESP 18; O2SAT 97
[2024-07-28 19:41] VITALS: BP 154/87; PULSE 103; RESP 18; TEMP 98.7; O2SAT 97
[2024-07-29 07:30] VITALS: BP 107/60; PULSE 70; RESP 16; TEMP 97.8; O2SAT 100
[2024-07-29] MEDS: OLANZapine 5mg rapidly disint. tablet PO SCH (07:34)
--- NOTE | 2024-07-29 12:47 | PROGRESS NOTE ---
Progress Note Dictate Providers to CC ~ Central Line/PICC still needed: N\\A Antibiotic Ordered?: No MRSA Education MRSA Education Provided to pt: No Objective Vitals Vital Signs Date Time Temp Pulse Resp B/P (MAP) Pulse Ox O2 Delivery O2 Flow Rate FiO2 07/29/24 07:30 16 100 Room Air 07/29/24 07:30 97.8 70 107/60 (76) Problem\\Assessment\\Plan Problems/Diagnosis: (1) Unspecified psychosis (2) Grave disability (3) Tactile hallucination (4) Paranoid Psychiatrist's Progress Note Date of Service: July 29, 2024 Notes CHART REVIEW [id number] states: "You reported something strange is happening, something is attacking me" Patient cannot say when she last ate or articulate a plan of self- care. Pt reports she will smell soap or something burning; then she reports she will sometimes hear the wind or an engine noise and then have the feeling that someone or something is going to either harm or attack her. Patient reports this feeling can present as a tactile hallucination ASSESSMENT The patient was interviewed in observation room. The patient was actively walking in hallway. The patient endorses "I am doing fine." "I don't think has really told me much today." "I see some strange things a black shape." "If I am sitting in the TV room area sometimes it might ask my to leave the TV room but I don't know if that's the something." "I can't really get a clear reading of the thing today." Denies SI. Denies HI. denies AH. The patient is stable no acute distress noted. The patient is cooperative, endorses visual hallucinations, and somewhat engaged during session.Per staff report the patient is medication compliant. Per staff report no abnormal behaviors. The patient has shown improvement. Will continue daily assessment and adjusting treatment as needed. Closely monitor behavior and response to medication during hospitalization. Results Of any Diagn. Testing REVIEW OF LABS URINE TOX SCREEN NEGATIVE URINALYSIS NEGATIVE SODIUM 139 POTASSIUM 4.0 CHLORIDE 107 ANION GAP 6 BUN 9 CREATININE 0.68 CALCIUM 10.0 ALBUMIN 3.8 AST 15 ALT 17 WBC 6.16 RBC 4.38 HEMOGLOBIN 13.7 HEMATOCRIT 39.2 PLATELET 274 Appearnace: Other (APPROPRIATE. AVERAGE HEIGHT AND WEIGHT FEMALE. WEARING STREET CLOTHING.REDDISH BROWN SHOULDER LENGTH HAIR) Speech: Other (CIRCUMSTANTIAL) Eye Contact: Normal Motor Activity: Normal Affect: Constricted Orientation Impairment: None Memory Impairment: None Attention: Normal Hallucinations: Visual Other: None Suicidality: None Homicidality: None Delusions: None Behavior: Cooperative Insight: Fair, Poor Judgment: Fair, Poor Treatment DEPAKOTE ER 500 MG P.O. Q.H.S. HYDROXYZINE 50 MG P.O. T.I.D. ZYPREXA 10MG PO QHS ZYPREXA 5 MG P.O. DAILY Monitoring by Staff, Milieu, Group, and Individual counseling as needed -- According to the [place] Suicide Assessment the above named patient is on Q15 MINUTE CHECKS. [id number]- Patient is unable to formulate a plan to safely meet their basic needs of food, clothing, and snf due to the severity of their mental illness. We are still titrating medications to an effective dose while maintaining a therapeutic environment to prevent decompensation and readmission. Total time spent 35 minutes on REVIEW OF Clinical notes [X ] RN notes [X] PCT documentation [X] SW notes Labs [ X] Medications [X] Care trends/care activity [X] Vitals [X] DISCUSSION WITH heat treater apprentice [X] Staff SW [X] Treatment Team [X] Discharge UNSURE AT THIS TIME. DISCHARGE HOMELESS ONCE STABLE. CODING VISIT-PSYCHIATRY Date of Service: July 29, 2024 Billing Provider: MARJORIE YODER APRN Psych Common Visit Codes: [id number] INP/OBS CARE(Low) MARJORIE YODER APRN July 29, 2024 12:46
[2024-07-29] MEDS ORDERED: OLAN5TAB29 PO (13:03)
[2024-07-29] MEDS ORDERED: HYDR-3686 PO (13:03)
[2024-07-29] MEDS ORDERED: DIVA250T8 PO (13:03)
[2024-07-29] MEDS ORDERED: COG1T PO (13:03)
[2024-07-29 19:00] VITALS: RESP 16; O2SAT 99
[2024-07-29 20:00] VITALS: BP 120/71; PULSE 94; RESP 16; TEMP 97.7; O2SAT 99
[2024-07-30] MEDS ORDERED: diltiazem-NS 100mg/100ml 100 ML IV ONE (04:27)
[2024-07-30 07:30] VITALS: BP 97/56; PULSE 89; RESP 16; TEMP 97.1; O2SAT 100
--- NOTE | 2024-07-30 16:34 | PROGRESS NOTE ---
Progress Note Dictate Providers to CC ~ Central Line/PICC still needed: N\\A Antibiotic Ordered?: No MRSA Education MRSA Education Provided to pt: No Objective Vitals Vital Signs Date Time Temp Pulse Resp B/P (MAP) Pulse Ox O2 Delivery O2 Flow Rate FiO2 07/30/24 07:30 97.1 89 16 97/56 (70) 100 Room Air Counseling Services Smoking & Tobacco Cessation: > 10 Minutes Problem\\Assessment\\Plan Problems/Diagnosis: (1) Unspecified psychosis (2) Grave disability (3) Tactile hallucination (4) Paranoid Psychiatrist's Progress Note Date of Service: July 30, 2024 Notes CHART REVIEW [id number] states: "You reported something strange is happening, something is attacking me" Patient cannot say when she last ate or articulate a plan of self- care. Pt reports she will smell soap or something burning; then she reports she will sometimes hear the wind or an engine noise and then have the feeling that someone or something is going to either harm or attack her. Patient reports this feeling can present as a tactile hallucination ASSESSMENT The patient was interviewed in observation room. The patient was actively standing in hallway. The patient endorses "Good." "The thing is there but not bothering as much today." The patient endorses no worsening mental health symptoms. Denies SI. Denies HI. denies AH. The patient is stable no acute distress noted. The patient is cooperative, calm, and somewhat engaged during session.Per staff report the patient is medication compliant. Per staff report no abnormal behaviors. The patient has shown some improvement. Will continue daily assessment and adjusting treatment as needed. Closely monitor behavior and response to medication during hospitalization. Results Of any Diagn. Testing REVIEW OF LABS URINE TOX SCREEN NEGATIVE URINALYSIS NEGATIVE SODIUM 139 POTASSIUM 4.0 CHLORIDE 107 ANION GAP 6 BUN 9 CREATININE 0.68 CALCIUM 10.0 ALBUMIN 3.8 AST 15 ALT 17 WBC 6.16 RBC 4.38 HEMOGLOBIN 13.7 HEMATOCRIT 39.2 PLATELET 274 Appearnace: Other (APPROPRIATE. AVERAGE HEIGHT AND WEIGHT FEMALE. WEARING GREEN SCRUBS.REDDISH BROWN SHOULDER LENGTH HAIR) Speech: Other (CIRCUMSTANTIAL) Eye Contact: Normal Motor Activity: Normal Affect: Constricted Orientation Impairment: None Memory Impairment: None Attention: Normal Hallucinations: None Other: None Suicidality: None Homicidality: None Delusions: None Behavior: Cooperative Insight: Fair Judgment: Fair, Poor Treatment DEPAKOTE ER 500 MG P.O. Q.H.S. HYDROXYZINE 50 MG P.O. T.I.D. ZYPREXA 10MG PO QHS ZYPREXA 5 MG P.O. DAILY Monitoring by Staff, Milieu, Group, and Individual counseling as needed -- According to the [place] Suicide Assessment the above named patient is on Q15 MINUTE CHECKS. [id number]- Patient is unable to formulate a plan to safely meet their basic needs of food, clothing, and usp due to the severity of their mental illness. We are still titrating medications to an effective dose while maintaining a therapeutic environment to prevent decompensation and readmission. Total time spent 50 minutes on REVIEW OF Clinical notes [X ] RN notes [X] PCT documentation [X] SW notes Labs [ X] Medications [X] Care trends/care activity [X] Vitals [X] DISCUSSION WITH position description manager [X] Staff SW [X] Treatment Team [X] Discharge UNSURE AT THIS TIME. DISCHARGE HOMELESS ONCE STABLE. CODING VISIT-PSYCHIATRY Date of Service: July 30, 2024 Billing Provider: MARJORIE YODER APRN Psych Common Visit Codes: [id number] INP/OBS CARE(Low) MARJORIE YODER APRN July 30, 2024 16:34
--- NOTE | 2024-07-30 17:14 | PROGRESS NOTE ---
Daily Progress Note Providers to CC ~ Antibiotic Timeout Antibiotic Ordered?: No Subjective This is the hospitalist progress note on patients hospitalized at [facility]. The patient had no acute medical complaints or concerns and none were voiced by nursing staff. Objective Vital Signs Date Time Temp Pulse Resp B/P (MAP) Pulse Ox O2 Delivery O2 Flow Rate FiO2 07/30/24 07:30 97.1 89 16 97/56 (70) 100 Room Air Gen. No acute distress alert Lungs clear to ascultation bilaterally, no wheezes rales or rhonchi appreciated Heart normal sinus rhythm no murmurs rubs or clicks noted Abdomen soft nontender bowel sounds are normoactive Lower extremities no clubbing cyanosis, nor edema appreciated bilaterally Problem\Assessment\Plan Problems/Diagnosis: (1) Grave disability # gravely disabled # psychoses Continue management by psychiatric team No acute medical issues The Hospitalist team will continue to follow the patient Date of Service: July 30, 2024 Billing Provider: NANETTE SERNA DO Common Visit Codes: [id number] INP/OBS CARE(LOW) NANETTE SERNA DO July 30, 2024 17:14
[2024-07-30 19:00] VITALS: RESP 18; O2SAT 99
[2024-07-30 20:00] VITALS: BP 129/67; PULSE 93; RESP 19; TEMP 96.8; O2SAT 99
--- NOTE | 2024-07-31 07:10 | DISCHARGE SUMMARY ---
Discharge Summary Providers to CC ~ Discharge Summary Admission Diagnosis: PARANOID. UNSPECIFIED PSYCHOSIS. GRAVELY DISABILITY Hospital Course DATE OF ADMISSION: DATE OF DISCHARGE: Discharge Diagnosis\\Comment: PARANOID. UNSPECIFIED PSYCHOSIS. GRAVELY DISABILITY Operations\\Procedures: NONE Consultants: MEDICAL TEAM Complications: NONE Condition on DC: Stable 2 or more antipsychotic used: No 2/more antipsychotic addressed: No Does Patient smoke: Yes Smoking education given.: Yes New Medications: Benztropine Mesylate (Benztropine Mesylate) 1 Mg Tablet 1 MG PO BID for 30 Days, #60 TAB Divalproex Sodium (Divalproex Sodium Er) 250 Mg Tab.sr.24h 250 MG PO HS for 30 Days, #60 TAB.SR Hydroxyzine Hcl* (Atarax*) 25 Mg Tablet 50 MG PO TID for 30 Days, #180 TAB Olanzapine (Olanzapine) 5 Mg Tab.rapdis 10 MG PO HS for 30 Days, #90 TAB TAKE 5MG DAILY Discontinued Medications: Home Med List (No Home Medications) Each PRN for anxiety, CAP 1 Refill Discharge Summary: CHART REVIEW [id number] states: "You reported something strange is happening, something is attacking me" Patient cannot say when she last ate or articulate a plan of self-care. Pt reports she will smell soap or something burning; then she reports she will sometimes hear the wind or an engine noise and then have the feeling that someone or something is going to either harm or attack her. Patient reports this feeling can present as a tactile hallucination. Patient actively seen and examined on day of discharge 07/31/2024, by myself, TAMMY Cazares. The patient is interviewed in observation room. The patient endorses "Good." Denies SI. Denies HI. Denies AVH. Paz was able to formulate a safety plan which includes going to the emergency room if symptoms return or worsen. Call [phone] or [phone] for immediate assistance if necessary. During his hospital stay, Paz receive multidisciplinary treatment he adhered to his medication regimen and has been pleasant and cooperative. She denies any suicidal ideation (SI), homicidal ideation (HI), auditory aren lucination (AH). Visual hallucination (VH) VH with improvement. Staff has reported no behavioral issues, and the patient has been sleeping well, adequate food intake, with no mood or behavioral changes noted. The decision to discharge Paz was made in consensus with the treatment team, including the director social service, community aide, and fire extinguisher charger on duty. The patient was discharged with a 30 day supply of medications. MENTAL STATUS EXAM APPEARANCE: APPROPRIATELY. DRESSED IN STREET CLOTHING. SPEECH: CIRCUMSTANCE EYE CONTACT: NORMAL AFFECT: CONGRUENT WITH MOOD MOOD: "GOOD" ORIENTATION IMPAIRMENT: NONE MEMORY IMPAIRMENT: NONE ATTENTION: NORMAL HALLUCINATIONS: NONE SUICIDALITY: NONE HOMICIDALITY: NONE DELUSIONS: NONE BEHAVIOR: COOPERATIVE, PLEASANT JUDGMENT: FAIR INSIGHT: FAIR Continue Current Inpatient Psychotropic Regimen @ home Follow-Up with Psychiatric Provider Safety Plan Discussed DISCHARGE CONDITION: Her readiness for discharge is supported by his stable mental status, adherence to treatment, and proactive approach to managing his mental health. Denies SI. Denies HI. Denies AH. VH with improvement. The patient has been informed to continue follow-up care to ensure ongoing support and monitoring. Patient discharged homeless. *Problems/Diagnosis: (1) Paranoid (2) Unspecified psychosis (3) Grave disability Total Time Spent on D/C: > 30 Minutes Counseling Services Smoking & Tobacco Cessation: > 10 Minutes CODING VISIT-PSYCHIATRY Date of Service: July 31, 2024 Billing Provider: MARJORIE YODER APRN Psych Common Visit Codes: [id number] DISCH DAY >30min MARJORIE YODER APRN July 31, 2024 07:10
[2024-07-31 07:40] VITALS: RESP 18; O2SAT 100
[2024-07-31 08:00] VITALS: BP 110/47; PULSE 98; RESP 19; TEMP 97.7; O2SAT 98
== END 2024-07-31 11:13 | disposition home or self-care (01) | DRG 751 ==
LOC: ADULT MH 15:42
PROVIDERS: ADMIT Psychiatry & Neurology Psychiatry; ATTEND Psychiatry & Neurology Psychiatry
PROC: GZHZZZZ Group Psychotherapy (ICD-10-PCS; principal; 2024-07-15)
PROC: GZ56ZZZ Individual Psychotherapy, Supportive (ICD-10-PCS; 2024-07-15)
DX: F23 Brief psychotic disorder (principal); F12.90 Cannabis use, unspecified, uncomplicated; Z59.00 Homelessness unspecified; Z79.899 Other long term (current) drug therapy
CPT/HCPCS: 36415; 80061; 87081; 99285; Q0161; Q0177